=== PATIENT | female | born 1960 | race Caucasian/White ===

== ENCOUNTER 2022-12-06 09:56 | Outpatient (REF) | payer MEDICAID, SELFPAY ==
[2022-12-06 11:09] LABS: MANUAL DIFF FLAG NO
[2022-12-06 11:34] LABS: Basophils Absolute Auto 0.1 X10*3/uL (0.0-0.2); Basophils Percent Auto 0.6 % (0-2); Eosinophils Absolute Auto 0.3 X10*3/uL (0.0-0.4); Eosinophils Percent Auto 2.8 % (0-4); Hematocrit 42.4 % (37.0-47.0); Hemoglobin 14.1 g/dl (12.0-16.0); Imm Gran Abs Auto 0.04 X10*3/uL (0.00-0.03); Imm Gran Pct Auto 0.4 % (0.0-0.4); Lymphocytes Absolute Auto 1.8 X10*3/uL (1.2-4.9); Lymphocytes Percent Auto 20.4 % (20-40); Mean Corpuscular HGB Conc 33.3 g/dl (31.0-35.0); Mean Corpuscular Hemoglobin 29.2 pg (27.0-33.0); Mean Corpuscular Volume 87.8 fL (80.0-98.0); Mean Platelet Volume 10.3 fL (9.4-12.3); Monocytes Absolute Auto 0.8 X10*3/uL (0.1-1.2); Neutrophils Percent Auto 66.8 % (45-73); Platelet Count 495 X10*3/uL (160-400); Red Blood Count 4.83 X10*6/uL (4.20-5.50); Red Cell Distribution Width 13.2 % (11.0-16.0)
[2022-12-06 11:45] LABS: Estimated Average Glucose 111 mg/dL; Hemoglobin A1c % 5.5 % (<6.0)
[2022-12-06 12:17] LABS: Alanine Aminotransferase 75 U/L (0-31); Albumin Level 4.2 g/dL (3.5-5.0); Alkaline Phosphatase 171 U/L (39-117); Anion Gap 16 (12-20); Aspartate Amino Transferase 35 U/L (5-31); Bilirubin Total 0.4 mg/dL (0.0-1.0); Blood Urea Nitrogen 8 mg/dL (9-16); Calcium 10.3 mg/dL (8.4-10.2); Carbon Dioxide 26 mmol/L (22-29); Chloride 103 mmol/L (96-108); Cholesterol 140 mg/dL (<200); Estimated Glomerular Filt Rate > 60; Glucose Random 90 mg/dL (60-115); HDL Cholesterol 40 mg/dL (>40); LDL Cholesterol Calculated 80 mg/dL (<100); Potassium 4.1 mmol/L (3.3-5.1); Sodium 141 mmol/L (135-145); Total Protein 8.2 g/dL (6.5-8.0); Triglycerides 101 mg/dL (<150)
[2022-12-06 12:23] LABS: Creatinine Urine 148.43 mg/dL; Microalbum/Creatinine Ratio Ur 12.1 ug/mg cr (<30)
[2022-12-06 12:28] LABS: HBS Num1 0.17 mIU/mL (0-7.99); HBc Num1 0.23 S/CO (0.00-0.79); HIV AB/AG Nonreactive (Nonreactive); HIV Num 1 0.05 S/CO (0.00-0.99); Hepatitis B Core Antibody Nonreactive (Nonreactive); ~HepC Num1 0.08 S/CO (0.00-0.79); ~Hepatitis B Surface Antibody NONREACTIVE (Nonreactive); ~Hepatitis C Antibody Nonreactive (Nonreactive)
[2022-12-06 12:44] LABS: Free T4 (Free Thyroxine) 0.96 ng/dL (0.71-1.85); Thyroid Stimulating Hormone < 0.01 uIU/mL (0.32-4.0)
[2022-12-06 12:55] LABS: Folate > 20.0 ng/mL (> or = 4.0); Vitamin B12 795 pg/mL (200-900)
[2022-12-06 13:47] LABS: CT PCR NOT DETECTED (Not Detect.); NG PCR NOT DETECTED (Not Detect.)
[2022-12-07 08:34] LABS: Syphilis Screen Nonreactive (Nonreactive)
[2022-12-09 12:03] LABS: Hepatitis B Viral DNA Qn - cp NOT DETECTED Log IU/mL (NOT DETECTED); Hepatitis B Viral DNA Qn-IU/mL NOT DETECTED (NOT DETECTED)
[2022-12-10 15:53] LABS: VITAMIN D (1,25 OH) D3 39 pg/mL; Vit D (1,25-Dihydroxy) Total 39 pg/mL (18-72); Vitamin D (1,25 OH) D2 <8 pg/mL
== END 2022-12-06 09:57 | disposition home or self-care (01) ==
LOC: HO.HHCL 09:56
PROVIDERS: Visit Provider Student in an Organized Health Care Education/Training Program
DX: Z00.00 Encounter for general adult medical examination without abnormal findings (principal)
CPT/HCPCS: 0353U; 80053; 80061; 82043; 82570; 82607; 82652; 82746; 83036; 84439; 84443; 85025; 86704; 86706; 86780; 86803; 87389; 87517

== ENCOUNTER 2022-12-18 10:32 | Outpatient (REF) | payer MEDICAID, SELFPAY ==
--- NOTE | ~2022-12-18 | US_ITS ---
EXAMINATION: US THYROID CLINICAL INFORMATION: Thyroid nodule. COMPARISON: None available. TECHNIQUE: Linear transducer lazar-scale and color Doppler examination with attention to the region of the thyroid. FINDINGS: SIZE: Measurements of the thyroid lobes and nodules are given in sagittal, anteroposterior and transverse dimensions respectively. Right Thyroid Lobe: 3.8 x 1.2 x 1.7 cm, volume 3.9 mL. Parenchyma: The gland echotexture is homogeneous. Thyroid vascularity is normal. Left Thyroid Lobe: 7.0 x 3.6 x 5.8 cm, volume 76.4 mL. Parenchyma: The gland echotexture is heterogeneous. Thyroid vascularity is increased. Isthmus: 0.5 cm in maximum AP dimension. Estimated total number of nodules greater than or equal to 1 cm: 1. [employer] nodules are described as follows: 1. Location: Right superior. Size: 0.5 x 0.3 x 0.4 cm, volume 0.04 mL. Nodule characteristics: Composition: Spongiform (0). Echogenicity: Anechoic (0). Shape: Not taller than wide (0). Margins: Smooth (0). Echogenic Foci: None (0). ACR TI-RADS total points: 0 ACR TI-RADS category: 1 2. Location: Right superior. Size: 0.3 x 0.2 x 0.3 cm, volume 0.01 mL. Nodule characteristics: Composition: Solid (2). Echogenicity: Hyperechoic (1). Shape: Not taller than wide (0). Margins: Smooth (0). Echogenic Foci: None (0). ACR TI-RADS total points: 3 ACR TI-RADS category: 3 3. Location: Left superior/mid/inferior. Size: 4.2 x 6.3 x 3.3 cm, volume 45.4 mL. Nodule characteristics: Composition: Solid/almost completely solid (2). Echogenicity: Isoechoic (1). Shape: Not taller than wide (0). Margins: Smooth (0). Echogenic Foci: Macrocalcifications (1). Punctate echogenic foci (3). ACR TI-RADS total points: 7 ACR TI-RADS category: 5 NODES: No lymphadenopathy is seen in the tissue surrounding the thyroid gland. US/US thyroid IMPRESSION: Left 6.3 cm TR 5 thyroid nodule meets criteria for biopsy. Fine-needle aspiration recommended. This study was presented today 12/19/2022 at 9:54 AM for interpretation. PSA staff will provide results to referring provider at this time. ACR TI-RADS RECOMMENDATION REFERENCE: Ultrasound-guided fine-needle aspiration, followup ultrasound, no further follow up. * TR1 (0 point) and TR2 (2 points): No FNA or follow up. * TR3 (3 points): FNA if more than or equal to 2.5 cm in maximum dimension, followup ultrasound in 1, 3 and 5 years if 1.5 to 2.4 cm in maximum dimension. * TR4 (4-6 points): FNA if more than or equal to 1.5 cm in maximum dimension, followup ultrasound in 1, 2, 3 and 5 years if 1 to 1.4 cm in maximum dimension. * TR5 (more than or equal to 7 points): FNA if more than or equal to 1 cm in maximum dimension, followup ultrasound every year for 5 years if 0.5 to 0.9 cm in maximum dimension. * TR3, TR4 or TR5 nodules that are below the size threshold for followup receive no follow up.
== END 2022-12-18 10:33 | disposition home or self-care (01) ==
LOC: HO.US 10:32
PROVIDERS: Visit Provider Student in an Organized Health Care Education/Training Program
DX: E04.1 Nontoxic single thyroid nodule (principal)
CPT/HCPCS: 76536

== ENCOUNTER 2022-12-22 11:17 | Outpatient (REF) | payer MEDICAID, SELFPAY ==
--- NOTE | ~2022-12-22 | US_ITS ---
PROCEDURE: ULTRASOUND-GUIDED THYROID NODULE FINE NEEDLE ASPIRATION CLINICAL INFORMATION: Left lobe 6.3 cm thyroid nodule. TECHNIQUE: Informed consent was obtained from the patient prior to the procedure. During this process, the procedure and potential alternatives were explained, along with the intended outcome and benefits. The risks of the procedure, as well as the risks of not doing the procedure, were discussed. The patient was given the opportunity to ask questions regarding the procedure and appeared competent to make medical decisions. A signed consent form which documents this discussion was placed in the medical record. A time out was performed in the room. The patient was placed in a supine position with the neck extended. The left side of the neck and chest was prepped and draped in routine sterile fashion. 1% lidocaine was used as anesthetic. Under real-time ultrasound guidance, a 25-gauge needle was placed into the nodule and aspiration was performed. A total of 4 aspirations were performed. The specimens were placed in CytoLyt and the Afirma bottle. Postprocedure images showed no hematoma. A Band-Aid was applied to the access site. The patient tolerated the procedure well with no immediate complications. Permanent ultrasound images were archived to the procedure. US/US guided fine needle asp IMPRESSION: Left thyroid nodule fine-needle aspiration. This procedure was performed by Luisito Schilling PA-C, and directly supervised by Dr. Peraza.
[2022-12-22] MEDS: Lidocaine HCl 1 % 20 ML VIAL 5 ML SUBCUT (13:07)
== END 2022-12-22 11:18 | disposition home or self-care (01) ==
LOC: HO.US 11:17
PROVIDERS: Visit Provider Student in an Organized Health Care Education/Training Program
DX: E04.1 Nontoxic single thyroid nodule (principal)
CPT/HCPCS: 10005; 88173; 88305

== ENCOUNTER → 2022-12-22 11:20 | Outpatient (BNV) | payer MEDICAID, SELFPAY | PROVIDERS: Visit Provider Radiology Diagnostic Radiology | DX: E04.1 Nontoxic single thyroid nodule (principal) | CPT/HCPCS: 10005 ==

== ENCOUNTER 2023-07-20 11:03 | Outpatient (AMB) | payer MEDICAID, SELFPAY ==
--- NOTE | 2023-07-20 08:25 | MHC.OFFVIS ---
Intake Visit Reasons: Current Smoker Allergies No Known Allergies Allergy (Verified 12/22/22 12:25) HPI HPI Current Smoker: Details: Initial visit for this 63yo smoker with a 40+PYH. Patient has been smoking since age 15 for 48 years. Max 1-2ppd. Currently 5 cigarettes a day. . Denies marijuana use. Reports social second hand smoke exposure. Denies exposure to chemicals or substances like asbestos. . Denies known family history of lung cancer. Denies personal history of cancers. Denies chest CT in last year. . Denies recent travel outside the [place]. Denies recent respiratory illness or recent hospitalization for respiratory issues. Denies testing positive for COVID. Admits receiving COVID Vaccine. x1. . Reports history of 6 strokes. Most recent in November 2022. Denies fever, chills, new/worsening cough, hemoptysis, hoarseness or dysphagia. Denies significant chest pain, significant dyspnea or unintentional weight loss. Patient Lung Cancer Screening Questionnaire reviewed with patient by provider. . Shared Decision Making Completed. Patient meets criteria. Discussed in detail with patient, the risk vs benefit of LDCT screening. Patient consents to proceed with scan. Discussed smoking cessation. [facility] Medical History (Updated 07/20/23 @ 11:19 by Alma Rosa Murray PA-C) Housing insecurity History of CVA with residual deficit Meningioma Left thyroid nodule Hypertension Hyperlipidemia Depression Nicotine dependence, cigarettes, uncomplicated Postmenopausal Surgical History (Updated 07/10/23 @ 09:50 by Alma Rosa Murray PA-C) S/P thyroid biopsy Social History (Updated 07/20/23 @ 11:20 by Alma Rosa Murray PA-C) Patient Tobacco Use Status: Current everyday Tobacco user Cigarettes Per Day: 5 Years Smoked: (onset 15yo- 40PYH) Assessment & Plan Assessment & Plan (1) Nicotine dependence, cigarettes, uncomplicated: Comment: (current smoker - onset 16yo, x47yrs) Code(s): F17.210 - Nicotine dependence, cigarettes, uncomplicated Category: Medical Plan: - SDM visit completed today in office. - Patient meets criteria for LDCT for lung cancer screening purposes and is asymptomatic. - Smoking cessation counseling offered. Patients can always call [phone]. - Will arrange for a LDCT scan of the chest for screening purposes at [facility]. - Risks, benefits, and alternatives were discussed in detail and the patient agrees to proceed. - Risks discussed include but are not limited to: radiation exposure, anxiety during testing and while awaiting results, false negatives, false positives and possibility of additional intervention such as further imaging or surgical procedures for benign disease. - Benefits are obviously detection of lung cancer at an early stage which can lead to improved outcomes. - Discussed the importance of screening program compliance with adherence to yearly LDCT scan as scheduled - or sooner interval scans for personalized screening regimen. - Discussed follow up plan. Our office will send a letter discussing results and if needed set up phone call and office visit based on CT findings. - Patient educated on results categorization and the management decisions for suspicious findings potentially found on the screening LDCT scan. Any patient with a Lung RADS score of 3 or 4 will be reviewed by a multidisciplinary team at [facility] to form a plan of action in regards to scan findings. - If further work up is warranted for a suspicious lung finding this will be followed by the Lung Cancer Screening program in conjunction with the Thoracic Surgery Department at [facility]. - A copy of the office note and LDCT will be sent to the patient's PCP - as well as documentation on any associated further plans of care. - Incidental findings on LDCT are the PCP's responsibility. These findings are indicated with an S finding on the LDCT Assessment. A note discussing the findings will be sent to the PCP who is then responsible for further management. - All questions answered.? Coding Level of Care Code Lung Cancer Screening [id number] Diagnoses Nicotine dependence, cigarettes, uncomplicated F17.210
== END 2023-07-20 11:29 | disposition home or self-care (01) ==
PROVIDERS: PCP Student in an Organized Health Care Education/Training Program; Referring Provider Student in an Organized Health Care Education/Training Program; Visit Provider Physician Assistant Medical
DX: F17.210 Nicotine dependence, cigarettes, uncomplicated (principal)
CPT/HCPCS: G0296

== ENCOUNTER 2023-07-20 11:27 | Outpatient (REF) | payer MEDICAID, SELFPAY ==
--- NOTE | ~2023-07-20 | CT_ITS ---
EXAMINATION: CT LOW-DOSE SCREENING CHEST WITHOUT CONTRAST CLINICAL INFORMATION: Nicotine dependence, cigarettes, uncomplicated. The patient is a current smoker with an 11.75 pack-year history of smoking. COMPARISON: None available. TECHNIQUE: Multidetector volumetric CT imaging of the chest is performed on a Siemens SOMATOM Definition scanner without contrast using low dose technique. Additional 2D coronal and sagittal reformatted images and axial 3D maximum intensity projection (MIP) images are generated on the CT workstation. This CT examination was performed using dose optimization techniques as appropriate, variously including the following: *Automated exposure control *Adjustment of mA and/or kV according to patient size (this includes techniques or standardized protocols for targeted exams where dose is matched to indication/reason for exam; i.e. extremities or head) *Use of iterative reconstruction technique TOTAL EXAM DLP: 38.50 mGy-cm. CTDIvol: 1.24 mGy. FINDINGS: PULMONARY NODULES: No suspicious pulmonary nodules. LUNGS: Lungs bilaterally symmetrically expanded. Mild emphysematous changes are present along with moderate diffuse bronchial thickening. No effusion or pneumothorax. Central airways patent. MEDIASTINUM: No mediastinal, hilar or axillary adenopathy or free fluid collection. CORONARY ARTERY CALCIFICATION: None visualized on this study. THYROID GLAND: There is a large left thyroid mass present measuring 4.6 x 4.0 cm in maximal transverse dimension. It is not all included on this exam. This was biopsied on 12/22/2022. Please correlate with the pathologic report. The visualized right thyroid is unremarkable. CARDIOVASCULAR STRUCTURES: Aortic and heart size normal. No pericardial effusion. CHEST WALL/AXILLA: Unremarkable. UPPER ABDOMEN: Included portions of the solid organs in the upper abdomen unremarkable on noncontrast imaging. OSSEOUS STRUCTURES: No suspicious focal findings. CT/CT lung screening IMPRESSION: 1. No evidence of pulmonary malignancy. 2. Mild emphysema and moderate bronchial thickening. 3. Large left thyroid mass which was biopsied on 12/22/2022. Please correlate with the pathologic report. 4. Lung-RADS Category lung Rads Category: 1. No nodules or definitely benign nodules. Probability of malignancy less than 1%. 5. Incidental findings (S category): Large left thyroid mass which was biopsied on 12/22/2022. RECOMMENDATION: Continued routine annual low-dose CT lung screening in 1 year is recommended. An order for CT CHEST LOW DOSE CANCER SCREENING ([id number]) can be placed.
== END 2023-07-20 11:28 | disposition home or self-care (01) ==
LOC: HO.CT 11:27
PROVIDERS: PCP Student in an Organized Health Care Education/Training Program; Visit Provider Physician Assistant Medical
DX: Z12.2 Encounter for screening for malignant neoplasm of respiratory organs (principal); F17.210 Nicotine dependence, cigarettes, uncomplicated
CPT/HCPCS: 71271; G0296

== ENCOUNTER 2023-10-10 13:22 | Outpatient (RCR) | payer MEDICAID, SELFPAY ==
--- NOTE | 2023-10-16 11:49 | MHC.SP.ADU ---
Referring provider: Jessica Davalos MD Reason for Referral: Adult Speech Language Evaluation/s/p CVA with residual dysarthria Type of Treatment: 85007 Evaluation Speech Sound Production WITH Language Date of Plan of Treatment: 10/10/23 Onset of Symptoms/Illness: 11/05/22 Date Treatment Started: 10/10/23 Medical Diagnosis: CVA, Dysarthria, Meningioma Primary Speech Language Diagnosis: R47.1 Dysarthria Secondary Speech Language Diagnosis: R48.2 Apraxia History Darlin Burger is a 63 year old woman who came to the clinic today with her niece, Padmini Knowles, who assisted with some information during the initial interview. Darlin's journey to this first evaluation for speech and language therapy services is complex. Darlin reported that she had lived in this area for about six years, and prior to that lived for most of her adult life in [place]. She moved back to [place] to assist with caring for her elderly mother, who has since passed. 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 She reported that she felt she didn't need to have a Primary Care Provider for most of her adult life, because she felt she was healthy and had no need for a Doctor. Darlin reports the first incident where she felt something was wrong and may have had a stroke was in February of 2022, however at that time she did not go to the hospital or seek medical intervention. Her subsequent physical difficulties resulted in multiple absences from work, resulting in her being dismissed from her job in March of 2022. Later that year, in early November, Darlin again had stroke symptoms, this time more severe including a speech impairment and unilateral right limb weakness, and was convinced by her niece to go to the hospital, which was [facility] in [place]. Darlin had first imaging studies done at [facility] on 11/04/22, with a head/brain CT diagnosing chronic appearing infarcts in the left internal capsule and left midbrain; and an MRI of the brain on 11/06/22 indicating Subacute or chronic infarct in the left basal ganglia and michele radiata with central cystic encephalomalacia. Chronic infarct in the left gilberto and midbrain and possible subtle chronic lacunar infarct in the left mid cerebellar hemisphere. Mild Wallerian degeneration along corticospinal tract. Incidental 1.5 cm meningioma overlying the posterior left sylvian fissure with no parenchymal edema nor mass effect. A CTA of the head and neck at this same time (11/04/22) also identified a 5 cm Left thyroid nodule deviating the trachia towards the right. Notes indicate that she was at that time diagnosed with motor aphasia (dysarthria?) right upper extremity weakness and dysphagia. However, Darlin reports that she was subsequently discharged from the hospital with no referral for rehabilitative services, and the recommendation that she first obtain a primary care provider. A month after being discharged from [facility], Darlin became homeless. Darlin had been staying in a homeless group home in [place], but recently needed to move to a group home in [place], where she is currently residing. Her niece has arranged a primary care provider, who she last saw in June of this year and who referred her to [facility] for Speech and Language services. The waitlist for evaluation at this clinic delayed this first meeting until this date, October 10, 2023. Her niece has also arranged specialist appointments, including neurology and endocrinology. The Neurologist at [facility] has recommended watchful waiting for the meningioma that has been identified, with follow up imaging recommended for next May 2024. Darlin is also working with Social Security for disability support, she and Padmini reported that they have been referred by the [facility] to see a Speech Therapist for an evaluation at [facility], scheduled as well for this 10/15/23. It was unclear if the [facility] were aware she had this appointment today for a Speech/Language Evaluations, or if the two appointments would lead to insurance complications. however a release was obtained to send this evaluation to the [facility] for documentation purposes. Finally, at this meeting, Darlin express her ongoing frustration and difficulty with her speech, difficulties she has had with retraining her handwriting and writing clearly, ongoing difficulty with some ADLs including difficulty holding a cup (her hand will drift so that it is sideways), and some mild memory issues. She reports that she independently done practice for skills like handwriting in the absence of any therapeutic intervention. Medical History: High Blood Pressure Stroke Thyroid Issues Other: Peripheral Vascular Disease, Meningioma, Thyroid nodule, hyperlipidemia, Depression, tobacco use, history of alcohol abuse (remote, not active). Medication List: please consult chart Recent Hospitalizations: No Respiratory Needs: Room Air Patient Orientation: Alert & Oriented x 4 Social History: Employment Status: Unemployed Highest level of education obtained: Unknown/Unable to report Current Living Situation: Darlin is homeless, currently living in a [facility] group [facility] in [place], [place] Past Speech Language Therapy: None Other Therapies Seen in Current Calendar Year: None Reported Speech, Language, Cognition difficulties: Speaking, Writing Comments: Darlin presents with a moderate apraxia of speech, characterized by false starts and hesitancies, prolongations of sounds, limited prosody, mild imprecision of speech articulation (Dysarthria). She has a mild impairment of writing secondary to residual right upper extremity weakness. Quality of Life: Darlin has not received any therapeutic intervention for her needs since diagnosed with a stroke nearly a year ago. She is homeless and struggling to get the social and medical services she needs, all of which have affected her quality of life. Patient Stated Goal of Speech-Language Therapy: Assess speech and language needs for therapeutic goals for intervention, provide speech therapy services. Assessment Speech Production: Nonfluent Pressured Slurred Clinical Impression: Impaired Observations: Speech production was assessed in the context of reading phonemically balanced sentences, reading a passage, and in conversational speech. On phonemically balanced sentences, Darlin was noted to be hypo-nasal on consonants /m, n/, and have difficulty with precisely articulating consonant blends. This was also evident on reading a short passage (the rainbow passage). However, most noticeably, Darlin evidences some difficulties when sequencing multisyllabic words, when initiating speech (evidenced whole and part word repetition in a false start manner), and in contexts had frequent vowel prolongations. 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 This was further noted when Darlin was asked to complete a sound sequencing exercise/test, diadochokinetic rate, where the sounds as sequenced had an irregular pattern of rythm, rate and loudness (stress). Speech was evidently effortful, which Darlin reports she must use both focus and effort whenever she speaks, in order to get her message across Informal Voice Assessment: Voice Loudness: Normal Voice Nasal Resonance: Hyponasal/Denasal Voice Oral Resonance: Normal Voice Phonatory-based Quality: Normal Voice Pitch: Normal Voice Other Observations: Clinical Impression: Intact Tests of Speech & Lang Adults: BDAE BNT Clinical Impression: Intact Observations: The Short Form of the [place] Naming Test (BNT) and the [place] Diagnostic Aphasia Examination(BDAE) were used to assess Darlin's receptive and expressive language abilities. The BNT is an assessment which measures an individual's ability to confrontationally name objects in pictures. The BDAEis an assessment to evaluate aphasia in individuals ages 16 years and older. Subsections of the exam include: Conversational and expository speech, auditory comprehension, oral expression, reading and writing. The language components of syntax, morphology, phonology and semantics are assessed. On the BNT short form, Darlin readily labelled all items with no apparent effort or difficulty. Darlin and her niece did report that she occasionally in conversation will use the wrong word but may not notice it (e.g. told Padmini Call my mother when she meant Call my doctor ). This behavior was not evident when she was focused and engaged on this evaluation. On the BDAE Short Form, Darlin again demonstrated effortful speech, with prolongations of sounds, false starts and word/sound repetitions. She was, however, able to produce a simple, cohesive narrative (ITC [employer] Picture). Repeat automatic sequences, words and sentences with no evident word finding difficulties or paraphasia (word substitutions). On receptive language tasks, she demonstrated 100% accuracy on a word and symbol identification task, evidenced some minor error when responding to multistep directions and complex ideational material. This minor difficulty may be more memory based v. language comprehension associated, and further testing of cognition and memory is warranted, but could not be completed as a part of this current Evaluation, given time constraints. On writing subtests, Darlin produced slow, careful, and effortful writing on each task, but with this effort writing was legible, evenly spaced and had no omissions when writing words to dictation, copying sentences and signing/printing her name. Darlin reports that she has worked hard at practicing writing independently, as initially following her stroke, she had little control and her writing was a scrawl. Writing still, however, is remarkably effortful and slow for her. Tests of Cognition: Clinical Impression: Observations: Augmentative and Alternative Communication: Observations: Impressions and Recommendations Summary: On evaluation today, Darlin presents with a moderate adult acquired Apraxia of speech (s/p CVA) characterized by false starts and hesitancies, prolongations of sounds, limited prosody, mild imprecision of speech articulation (Dysarthria). She has a mild impairment of writing secondary to residual right upper extremity weakness. She has not had intervention for these needs since their onset with her stroke that occurred almost one year ago (November of 2022). Darlin reports that communication in these areas (speech and writing) have been extraordinarily effortful for her and she is very aware and self conscious about her difficulties. She has been remarkable for her own personal attempts to understand and improve her skills through repeated practice, particularly with writing. On testing today, Darlin is presenting with receptive and expressive language skills within expected limits. However, she does report having occasional misnomers/paraphasia which was not captured on this evaluation. Further, some errors on receptive language tasks were suspected to be secondary to short term memory issues, and more testing in the area of cognition is needed. It is strongly recommended that Darlin return for a period of targeted Speech Therapy for improvement of and strategies for speech production for fluent communication. It is also recommended that additional testing for cognitive/memory needs be completed as a part of that service. Impact on Daily Function/Activity Limitations: Daily Activities: Moderate Interpersonal Interactions: Moderate Education: Moderate Employment: Moderate Community: Moderate Prognosis for Improvement: Good Comment: Darlin, to date, has received no intervention for her speech impairment following a CVA 11/05/22. Recommendation for Speech Therapy: Outpatient Speech Therapy Frequency/Duration: One forty five minute session weekly for a period of 8-12 weeks Date Range for Service Requested: 8-12 weeks Time to Reassess: PRN Assisted Goals: Darlin will produce fluent, articulate speech at the conversational level with minimal prolongations and hesitancies as observed in four out of five contexts. Short Term Goals: Goal # : Darlin will complete an abbreviated cognitive assessment, e.g. The Repeatable Battery for Neurocognitive Assessment (RBANS) to further assess memory and processing skills. Goal Status: Goal# : 2.1 Darlin will use a pacing strategy to produce multisyllabic words of four to five syllables with fluent, articulate speech with 80% accuracy. 2.2 Darlin will use a pacing strategy to produce multisyllable words of four to five syllables in connected speech (reading, conversation) with 80% accuracy Goal Status: Goal # : 3.1 Darlin will use vocal flow/easy onset strategies to initiate words and sentences with 80% accuracy 3.2 Darlin will pull out and restart an expression with easy onset in the context of a prolongation of a vowel in an word (pressured speech) with 80% accuracy. Goal Status: Goal # : 4.1 In structured exercises targeting intonation, Darlin will pitch and loudness variation to indicate intention and emphasis (prosody) with 80% accuracy. Goal Status: Recommended Referrals to be Discussed with Primary Care Provider: Occupational Therapy Eval Patient Education: Completed: Yes Patient/Caregiver Education: Described Results of Evaluation Patient expressed understanding of evaluation Patient agrees with goals and treatment plan Family/Caregivers expressed understanding of results Family/Caregivers expressed agreement with goals and treatment plan Comments/Barriers to Learning: Template Worker Clinican/Clinical Fellow: No Supervisory Statement: N/A Speech Language Pathologist: Johanna Adame M.A., CCC-WEED CUTTER
== END 2023-10-26 16:11 | disposition still patient (30) ==
LOC: HO.SH 13:22
PROVIDERS: PCP Student in an Organized Health Care Education/Training Program; Visit Provider Student in an Organized Health Care Education/Training Program
DX: R47.1 Dysarthria and anarthria (principal); R48.2 Apraxia
CPT/HCPCS: 92523

== ENCOUNTER 2023-12-28 14:01 | Outpatient (REF) | payer MEDICAID, SELFPAY ==
--- NOTE | ~2023-12-28 | XR_ITS ---
EXAMINATION: XR HUMERUS, RIGHT CLINICAL INFORMATION: Right arm pain following a fall. COMPARISON: None available. TECHNIQUE: AP and lateral views of the right humerus. FINDINGS: The bones and soft tissues are normal. No fracture. Imaged portions of the shoulder and elbow are unremarkable. XR/XR humerus RT IMPRESSION: Unremarkable examination. Electronically signed by: Griffin Avila MD 12/28/2023 03:16 PM EDT RP
--- NOTE | ~2023-12-28 | XR_ITS ---
EXAMINATION: XR HIP, LEFT CLINICAL INFORMATION: Left hip pain following a fall. COMPARISON: None available. TECHNIQUE: Two views of the left hip. FINDINGS: No acute fracture or dislocation. No joint space narrowing or marginal osteophytes. No osseous erosion. No evidence of femoral head avascular necrosis. No abnormal soft tissue calcification. XR/XR hip LT min 2V IMPRESSION: No acute fracture or dislocation. Electronically signed by: Griffin Avila MD 12/28/2023 03:16 PM EDT
== END 2023-12-28 14:02 | disposition home or self-care (01) ==
LOC: HO.HHCX 14:01
PROVIDERS: Visit Provider Student in an Organized Health Care Education/Training Program
DX: M25.552 Pain in left hip (principal); M79.601 Pain in right arm
CPT/HCPCS: 73060; 73502

== ENCOUNTER 2024-01-01 11:24 | Outpatient (REF) | payer MEDICAID, SELFPAY ==
[2024-01-01 13:44] LABS: Hematocrit 34.7 % (37.0-47.0); Hemoglobin 11.1 g/dl (12.0-16.0); Mean Corpuscular Volume 90.6 fL (80.0-98.0); Mean Platelet Volume 10.3 fL (9.4-12.3); Platelet Count 382 X10*3/uL (160-400); Red Blood Count 3.83 X10*6/uL (4.20-5.50); Red Cell Distribution Width 14.8 % (11.0-16.0); White Blood Count 9.1 X10*3/uL (4.8-10.8)
[2024-01-01 13:51] LABS: Estimated Average Glucose 108 mg/dL; Hemoglobin A1C 104.2967 umol/L; Hemoglobin A1c % 5.4 % (<6.0); Total Hemoglobin (HGBA1C) 2970.6818 umol/L
[2024-01-01 14:03] LABS: Alanine Aminotransferase 28 U/L (0-31); Albumin Level 4.2 g/dL (3.5-5.0); Alkaline Phosphatase 63 U/L (39-117); Anion Gap 12 (12-20); Aspartate Amino Transferase 49 U/L (5-31); Bilirubin Total 0.2 mg/dL (0.0-1.0); Blood Urea Nitrogen 14 mg/dL (9-16); Calcium 9.4 mg/dL (8.4-10.2); Carbon Dioxide 24 mmol/L (22-29); Chloride 105 mmol/L (96-108); Cholesterol 140 mg/dL (<200); Estimated Glomerular Filt Rate > 60; Glucose Random 99 mg/dL (60-115); HDL Cholesterol 45 mg/dL (>40); LDL Cholesterol Calculated 68 mg/dL (<100); Potassium 3.7 mmol/L (3.3-5.1); Sodium 137 mmol/L (135-145); Total Protein 7.7 g/dL (6.5-8.0); Triglycerides 138 mg/dL (<150)
[2024-01-01 14:15] LABS: Creatinine Urine 61.87 mg/dL; Microalbum/Creatinine Ratio Ur 17.7 ug/mg cr (<30)
[2024-01-01 14:25] LABS: TSH reflex Free T4 0.29 uIU/mL (0.32-4.0); Vitamin D 25-OH Total 46.9 ng/mL (>30)
[2024-01-01 14:49] LABS: CT PCR NOT DETECTED (Not Detect.); NG PCR NOT DETECTED (Not Detect.)
[2024-01-01 18:46] LABS: Free T4 (Free Thyroxine) 0.73 ng/dL (0.71-1.85)
[2024-01-02 08:58] LABS: HBS Num1 2.79 mIU/mL (0-7.99); HBsAGNum1 0.38 S/CO (0.00-0.99); HIV AB/AG Nonreactive (Nonreactive); HIV Num 1 0.06 S/CO (0.00-0.99); Hepatitis B Surface Antigen Negative (Negative); ~Hepatitis B Surface Antibody NONREACTIVE (Nonreactive)
[2024-01-02 11:52] LABS: Iron 46 mcg/dL (30-160); Percent Iron Saturation 18 % (15-50); Total Iron Binding Capacity 251 mcg/dL (228-428); Unsaturated Iron Binding 205 ug/dL
[2024-01-02 12:05] LABS: Ferritin 174 ng/mL (10-250)
[2024-01-03 08:12] LABS: HBc Num1 0.08 S/CO (0.00-0.79); Hepatitis B Core Antibody Nonreactive (Nonreactive); ~Hepatitis C Antibody Nonreactive (Nonreactive)
[2024-01-03 08:54] LABS: Syphilis Screen Nonreactive (Nonreactive)
== END 2024-01-01 11:25 | disposition home or self-care (01) ==
LOC: HO.HHCL 11:24
PROVIDERS: Visit Provider Student in an Organized Health Care Education/Training Program
DX: Z00.00 Encounter for general adult medical examination without abnormal findings (principal)
CPT/HCPCS: 36415; 80053; 80061; 82043; 82306; 82570; 82728; 83036; 83540; 84439; 84443; 85027; 86704; 86706; 86780; 86803; 87340; 87389; 87491; 87591

== ENCOUNTER 2024-02-13 12:19 | Outpatient (REF) | payer MEDICAID, SELFPAY | END 2024-02-13 12:20 | disposition home or self-care (01) | LOC: HO.MAMMO 12:19 | PROVIDERS: PCP Student in an Organized Health Care Education/Training Program; Visit Provider Student in an Organized Health Care Education/Training Program | DX: Z12.31 Encounter for screening mammogram for malignant neoplasm of breast (principal) | CPT/HCPCS: 77063; 77067 ==

== ENCOUNTER → 2024-02-13 12:30 | Outpatient (BNV) | payer MEDICAID, SELFPAY | PROVIDERS: PCP Student in an Organized Health Care Education/Training Program; Visit Provider Internal Medicine | DX: Z12.31 Encounter for screening mammogram for malignant neoplasm of breast (principal) | CPT/HCPCS: 77063; 77067 ==

== ENCOUNTER 2024-05-28 15:00 | Outpatient (RCR) | payer MEDICAID, SELFPAY ==
--- NOTE | 2025-02-17 13:44 | MHC.SL.SOA ---
Referring Provider: Jessica Davalos MD Reason for Referral: Adult Speech Language Evaluation/s/p CVA with residual dysarthria Date of Plan of Treatment:10/10/23 Onset of Symptoms/Illness:11/05/22 Date Treatment Started:10/10/23 Medical Diagnosis: Primary Speech Language Diagnosis:R48.2 Apraxia Secondary Speech Language Diagnosis:R47.01 Aphasia Number of Authorized Visits Remaining: Authorization End Date: Reason for Visit:Non-billable Event Other: Subjective:This is an administrative discharge note for Darlin Burger, who attended Speech and Language therapy for a period of approximately four months for a total of twelve therapy sessions between 10/31/23-05/28/24 (with a 2 month hiatus secondary to medical issues). Darlin had suffered a series of strokes and was seen for residual issues related to anomic aphasia and acquired apraxia of speech. Darlin made excellent progress during the course of therapy, making significant gains in her ability to communicate fluently and clearly. She requested assistance with writing during the course of therapy, which she had experienced difficulty with as a result of her strokes, and additional goals were added to address this need. Darlin, who was homeless during this course of therapy, found permanent housing in May of this past year in [place], [place]. This change in residence, however created difficulty with her being able to have the transportation she needed to attend sessions, therefore she elected to end therapy. Darlin returned to therapy today after roughly a two month hiatus. The gap in service was due to thyroid surgery in early March, followed by a change in her housing to a respite senior care in [place]. The change in her housing caused significant issues with her being able to have transport scheduled for her to get to this appointment, which was finally resolved today. Darlin reported that she will soon be moving to permanent housing in [place]. She reported that her issues with SSI are yet to be resolved and the uncertainty has been very stressful for her. However, Darlin reported that her communication and speaking has generally been very good, with minimal difficulties. She reported that she has practiced her handwriting, writing in cursive, and while it has improved, it continues to be an are of concern for her. Objective: Darlin practiced speech production strategies, hand writing and word finding strategies in structured exercises, and was given carryover activities for the week. Assessment:Goal 1: Darlin used a slant board and a writing model with raised lines to produce cursive handwriting. Darlin was slow and deliberate in her writing, with legibility decreasing toward the end of the written sentence (due to fatigue?). Darlin admitted a tendency toward perfectionism in her writing, as it was a source of pride before the had her stroke. Goal 2.1: n/a Goal 2.2: Darlin demonstrated fluent production and minimal hesitancies in an activity to elicit spontaneous speech with multisyllabic words (90% accuracy) with excellent independence. 3.1: n/a today 3.2: While producing a spontaneous narrative using a wordless story book, Darlin was noted to produce mostly fluent speech, with occasional pauses related to formulating/planning what and how she would say it. 4.1: In conversation and when producing a simple narrative, Darlin demonstrated clear, spontaneous intonation in her speaking, which is a significant improvement from her baseline. Notes: When greeting the therapist today, Darlin was noted to have very good fluency and use of intonation and was given this feedback. She did however note that while she also notes improvements in her communication, she has significant lapses when she needs to interact with new people and when she is fatigued. Plan: Goal # : 1. Darlin will improve rate and legibility of writing when given adaptive/assistive devices and routine practice as observed in four out of five contexts. Status of Goal: New Goal Goal # : 2.1 Darlin will use a pacing strategy to produce multisyllabic words of four to five syllables with fluent, articulate speech with 80% accuracy. 2.2 Darlin will use a pacing strategy to produce multisyllable words of four to five syllables in connected speech (reading, conversation) with 80% accuracy Status of Goal: Goal # : 3.1 Darlin will use vocal flow/easy onset strategies to initiate words and sentences with 80% accuracy 3.2 Darlin will pull out and restart an expression with easy onset in the context of a prolongation of a vowel in an word (pressured speech) with 80% accuracy. Status of Goal: Goal # : 4.1 In structured exercises targeting intonation, Darlin will pitch and loudness variation to indicate intention and emphasis (prosody) with 80% accuracy. Status of Goal: Revised Goal Seen by: Graduate/Clinical Fellow: No Supervisory Statement: f_Reg Query Last Value , MHC.AU.SIGNATUR Speech Language Pathologist: Johanna Adame M.A., [facility] CLERK
== END 2025-02-18 10:38 | disposition home or self-care (01) ==
LOC: HO.SH 15:00
PROVIDERS: Visit Provider Student in an Organized Health Care Education/Training Program
DX: I63.9 Cerebral infarction, unspecified (principal); R47.1 Dysarthria and anarthria
CPT/HCPCS: 92507